=== PATIENT | female | born 1960 | race Caucasian/White ===

== ENCOUNTER 2019-10-31 14:58 | Outpatient (CLI) | payer OTHER ==
--- NOTE | 2019-10-31 15:57 | RAD ---
XR Knee Rt 4 View STANDARD: 10/31/2019 12:00 AM CLINICAL INDICATION: Right knee pain COMPARISON: None. FINDINGS: Bones: There is postprocedural change of a right total knee arthroplasty revision with a distal femo ral replacement prosthesis and a constrained articular surface. The prosthesis are both long stemmed. The proximal tibial prosthesis appears well seated without evidence of loosening. The very p roximal aspect of the femoral prosthetic stem is not included within the [id number]. Joints: There is heterotopic ossification surrounding the distal femoral replacement and seen posteri or laterally to the right knee joint. Soft Tissue: There is soft tissue swelling surrounding the right knee is most prominent involving the surface marker seen within the region of pain. IMPRESSION: Right total knee prosthesis without overt evidence to suggest loosening involving the visualized pros thetic components. Soft tissue swelling, most prominent underlying the surface marker placed in the region of pain. Dedi cated soft tissue ultrasound of this region may be helpful for further interrogation.
== END 2019-10-31 14:59 | disposition home or self-care (01) ==
LOC: SCSRAD 14:58
PROVIDERS: ATTEND Family Medicine
DX: M25.561 Pain in right knee (principal); M79.89 Other specified soft tissue disorders; Z96.651 Presence of right artificial knee joint